=== PATIENT | male | born 1980 | race Caucasian/White ===

== ENCOUNTER 2017-11-19 20:34 | Emergency (ER) | payer OTHER ==
[2017-11-19 20:51] VITALS: BP 137/93; PULSE 110; RESP 18; TEMP 98.6
--- NOTE | 2017-11-19 21:11 | ED ---
Upper Extremity HPI - General Chief Complaint: Extremity Injury, Upper Stated Complaint: shoulder pain Time Seen by Provider: 11/19/17 20:59 Source: patient Mode of arrival: ambulatory Limitations: no limitations - History of Present Illness Initial Comments: 37-year-old male presents with left sided neck pain and shoulder pain since yesterday. Patient states he was carrying hot water tank when it slipped and he caught the brunt of it falling and fell back into a wall. Patient having a lot of pain in the left shoulder got worse today. Patient also having pain in the left neck region. Patient states he can move it but it's very painful he is limited range of motion. Patient states his left upper extremity feels very weak. No head injury no headache no loss of consciousness. No previous injury or surgery to the left shoulder region. MD Complaint: Injury to:: left, shoulder -: days(s) (1) Handedness: right Place: home Improves With: immobilization Worsens With: movement of extremity Context: direct blow, injury - Related Data Previous Rx's Medication Instructions Recorded Acetaminophen with Codeine 1 tab PO Q4H #10 tab 06/21/17 [Tylenol w/codeine #3] Methocarbamol [Robaxin-750] 750 mg PO TID #12 tablet 06/21/17 Naproxen [EC-Naprosyn] 500 mg PO BID #30 tablet. 06/21/17 Naproxen [Naprosyn] 500 mg PO Q12HR #30 tab 11/19/17 Allergies Allergy/AdvReac Type Severity Reaction Status Date / Time No Known Allergies Allergy Verified 11/19/17 20:51 Review of Systems ROS Statement: Those systems with pertinent positive or pertinent negative responses have been documented in the HPI. ROS Other: All systems not noted in ROS Statement are negative. Musculoskeletal: Reports: other (left shoulder , neck, left side) Skin: Denies: rash Neurological: Denies: headache, weakness, numbness, paresthesias, confusion Past Medical History Past Medical History: No Reported History History of Any Multi-Drug Resistant Organisms: None Reported Past Surgical History: Orthopedic Surgery Past Psychological History: No Psychological Hx Reported Smoking Status: Current every day smoker Past Alcohol Use History: Occasional Past Drug Use History: None Reported General Exam Limitations: no limitations Head exam: Present: atraumatic, normocephalic, normal inspection Neck exam: Present: normal inspection, tenderness (left sided, trapezius area, soft tissue region), full ROM (Limited C-spine especially to the left rotation along with lateral bending.). Absent: meningismus, lymphadenopathy Left Shoulder Exam: Present: normal inspection, tenderness (left ant shoulder), tenderness over AC joint (left). Absent: full ROM Upper Arm exam: Present: normal inspection, full ROM. Absent: tenderness, swelling Elbow exam: Present: normal inspection, full ROM. Absent: tenderness, swelling Forearm Wrist exam: Present: normal inspection, full ROM. Absent: tenderness, swelling Hand Wrist exam: Present: normal inspection, full ROM. Absent: tenderness, abrasion Vascular: Present: normal capillary refill Neurological exam: Present: alert, oriented X3, CN II-XII intact Psychiatric exam: Present: normal affect, normal mood Skin exam: Present: warm, dry, intact, normal color. Absent: rash Course Vital Signs 11/19/17 20:48 Temperature 98.6 F Pulse Rate 110 H Respiratory 18 Rate Blood Pressure 137/93 O2 Sat by Pulse 95 Oximetry Medical Decision Making - Medical Decision Making Reviewed MAPS, only one prescription found, 190 score Reviewed x-rays negative for any acute changes patient does have old injury to the right AC joint and aware of that separation otherwise noted degenerative changes of the neck. Patient does not want any narcotics today we will give Toradol injection along with naproxen prescription. Patient to have close follow-up with orthopedic shoe fitter to have possible further evaluation treatment such as an MRI if needed. Disposition Clinical Impression: Strain of shoulder, Neck pain Disposition: HOME SELF-CARE Condition: Good Instructions: Shoulder Pain (ED), Neck Pain (ED) Prescriptions: Naproxen [Naprosyn] 500 mg PO Q12HR #30 tab Is patient prescribed a controlled substance at d/c from ED?: No If prescribed controlled substance>3 days was MAPS reviewed?: No When asked, does pt state using other controlled substances?: No Referrals: None,Stated [Primary Care Provider] - 1-2 days Ian Heath MD [STAFF PHYSICIAN] - 1-2 days
--- NOTE | 2017-11-19 21:54 | XR ---
EXAMINATION TYPE: XR cervical spine 6 views comp, XR AC joint BILAT, 2 views, XR shoulder complete 3 views LT DATE OF EXAM: 11/19/2017 COMPARISON: NONE HISTORY: 37-year-old male with pain after fall FINDINGS: Cervical spine: Normal odontoid view. There is mild to moderate disc/endplate degenerative change at C5-C6 with endpl ate spondylosis and disc interspace narrowing. Corresponding uncovertebral joint and facet degenerati ve change. Limited obliquity for assessment of the left-sided neuroforamen. There may be moderate ana roforaminal narrowing at C4-C5 and C5-C6. Minimal neuroforaminal narrowing on the right at C5-C6. Pre served alignment of the cervical spine. No predental space widening or prevertebral soft tissue swell ing. Left shoulder: No acute fracture, subluxation, or dislocation. Visualized left hemithorax is clear. AC joints: There is chronic separation at the right AC joint with superior dislocation of the clavicle in relati on to the acromion. Weight-bearing increase of the degree of dislocation. However, the left AC joint remains intact. IMPRESSION: 1. Cervical spine: [id number] spondylotic change mid to lower cervical spine. No malalignment o r prevertebral soft tissue swelling. 2. Left shoulder: No acute osseous abnormality seen. 3. AC joints: The left AC joint remains intact. However, there is separation of the right AC joint wi th superior dislocation of the clavicle. Weight-bearing further accentuates this dislocation. Correla te as to if there was any trauma affecting the right shoulder.
[2017-11-19] MEDS ORDERED: KETOROLAC 60 MG/2 ML VIAL IM STA (22:05)
== END 2017-11-19 22:19 | disposition home or self-care (01) ==
LOC: EC 20:34
DX: S46.912A Strain of unspecified muscle, fascia and tendon at shoulder and upper arm level, left arm, initial encounter (principal); F17.200 Nicotine dependence, unspecified, uncomplicated; W01.198A Fall on same level from slipping, tripping and stumbling with subsequent striking against other object, initial encounter; Y92.009 Unspecified place in unspecified non-institutional (private) residence as the place of occurrence of the external cause
CPT/HCPCS: 72050; 73030; 73050; 99283; 96372; J1885